=== PATIENT | female | born 1980 | race Two or more races ===

== ENCOUNTER 2019-04-16 05:58 | Day surgery (SDC) | payer BC ==
[2019-04-13 12:19] VITALS: BMI 54.1
[2019-04-16] MEDS ORDERED: BUPIVACAINE HCL/PF 2.5 MG/ML - 30 ML VIAL IJ ONE (07:10)
[2019-04-16] MEDS ORDERED: LIDOCAINE HCL 1%, 10 MG/ML (20ML VIAL) ONE (07:11)
[2019-04-16] MEDS ORDERED: PROPOFOL 20 ML ONE ×2 (07:21)
[2019-04-16] MEDS ORDERED: MIDAZOLAM HCL 2 MG/2 ML SINGLE DOSE VIAL ONE ×2 (07:33)
[2019-04-16] MEDS ORDERED: CLINDAMYCIN PHOSPHATE 600 MG/4 ML VIAL ONE (08:02)
[2019-04-16] MEDS ORDERED: LIDOCAINE 1% P/F 10 MG/ML VIAL INF ONE (08:10)
[2019-04-16] MEDS ORDERED: BUPIVACAINE HCL/PF 0.25% (2.5MG/ML) 10 ML VIAL IJ ONE (08:10)
[2019-04-16 08:50] VITALS: TEMP 98
[2019-04-16 09:52] VITALS: BP 132/66; PULSE 88
--- NOTE | 2019-04-16 10:56 | OP ---
DATE OF OPERATION: 04/16/2019 Done at [facility] SURGEON: Chuck Anaya MD OCCUPATIONAL SAFETY SPECIALIST: YUSEF Hutchinson PREOPERATIVE DIAGNOSIS: Left carpal tunnel syndrome. POSTOPERATIVE DIAGNOSIS: Left carpal tunnel syndrome. PROCEDURE: Left carpal tunnel release, CPT code 32329. FINDINGS: 1. Thickened transcarpal with impingement upon median nerve. 2. Thickened scar tissue along the transcarpal ligament attaching it to the nerve sheath with scar tissue extending into the flexor tendons. PROCEDURE: Patient with evidence of previous trauma with thickened scar tissue in the multiple layers. The transcarpal ligament was incised and released from the epineuron with thickened scar tissue seen throughout the carpal tunnel. Under sterile conditions, the upper extremity was prepped and draped in a sterile fashion. Incision was made along the longitudinal portion of the carpal tunnel. A longitudinal incision was made along the proximal portion of the palm, following the palm crease. This was taken down to the transcarpal ligament, which was released initially with scalpel and then extended proximally and distally using blunt tenotomy scissors. The median nerve was identified and completely released from impingement by the transcarpal ligament. The wound was then irrigated with copious amounts of irrigation. Skin was closed with 5-0 nylon in single interrupted sutures. The PA listed above was present and assisted at surgery. Their presence was absolutely medically necessary for the completion of the procedure. They helped hold the arthroscopy, pass instruments (and implants when indicated) and the procedure could not have been completed without their assistance. CHUCK ANAYA M.D. [id number]
[2019-04-16] MEDS ORDERED: ONDANSETRON 4 MG/2 ML VIAL IVPUSH PRN (11:31)
== END 2019-04-16 09:57 | disposition home or self-care (01) ==
LOC: FASU 05:58
PROVIDERS: ATTEND Orthopaedic Surgery
PROC: 01N50ZZ Release Median Nerve, Open Approach (ICD-10-PCS; principal; 2019-04-16 08:10)
DX: G56.02 Carpal tunnel syndrome, left upper limb (principal)
CPT/HCPCS: 81025